=== PATIENT | female | born 1940 | race Caucasian/White ===

== ENCOUNTER 2019-05-24 21:00 | Emergency (ER) | payer MEDICARE ==
[~2019-05-24] VITALS: Ht 162.5 cm; Wt 53.6 kg
--- NOTE | 2019-05-24 21:09 | ED Head Injury ---
General Stated Complaint: FALL Source: patient Exam Limitations: no limitations History of Present Illness Date Seen by Provider: May 24, 2019 Time Seen by Provider: 21:07 Initial Comments To ER per EMS from the scene of a green party where she was at, she decided to dance and in doing so she fell out of her dance partner's arm striking the back of her head on the floor. She denies alcohol use. She does have a laceration to the back of her scalp. No loss of consciousness no nausea or vomiting, does have a headache. No anticoagulant use, she takes no medications at all for that matter. She is otherwise very healthy. She recalls all events. No neck pain no arm or shoulder pain no hip pain no leg pain no chest abdomen pelvis or back pain. Occurred: just prior to arrival Severity: moderate Location: occipital Method of Injury: unknown Associated Systoms: Headaches Allergies and Home Medications Allergies Coded Allergies: Sulfa (Sulfonamide Antibiotics) (Verified Allergy, Unknown, 05/24/19) Home Medications No Active Prescriptions or Reported Meds Patient Home Medication List Home Medication List Reviewed: Yes Review of Systems Review of Systems Constitutional: see HPI Eyes: No Symptoms Reported Ears, Nose, Mouth, Throat: no symptoms reported Respiratory: no symptoms reported Cardiovascular: no symptoms reported Genitourinary: no symptoms reported Musculoskeletal: no symptoms reported Skin: no symptoms reported Psychiatric/Neurological: See HPI Endocrine: No Symptoms Reported Past Olzoxfh-Pliiet-Pzeczf Hx Patient Social History Recent Foreign Travel: No Contact w/Someone Who Travel: No Physical Exam Vital Signs Vital Signs - First Documented 05/24/19 21:00 Temp 36.3 Pulse 92 Resp 18 B/P (MAP) 159/85 (109) Pulse Ox 95 O2 Delivery Room Air Capillary Refill : Height, Weight, BMI Height: '" Weight: lbs. oz. kg; BMI Method: General Appearance: WD/WN, no apparent distress HEENT: PERRL/EOMI, normal ENT inspection, TMs normal Neck: non-tender, full range of motion Respiratory: no respiratory distress, no accessory muscle use Gastrointestinal: normal bowel sounds, non tender Extremities: normal range of motion, non-tender Psychiatric: alert, oriented x 3 Crainal Nerves: normal hearing, normal speech, PERRL Skin: normal color, warm/dry Suellen Coma Score Best Eye Response: (4) Open Spontaneously Best Verbal Response: (5) Oriented Best Motor Response: (6) Obeys Commands [place] Total: 15 Procedures/Interventions Wound Location: Scalp Wound Length (cm): 1.5 Wound's Depth, Shape: linear, contused tissue, sub Q Wound Explored: clean Anesthesia: Lidocaine w/ Epi Staple Repair: Stapler 35W 5 sajan placed Progress/Results/Core Measures Results/Orders My Orders Orders - MONTANA MACDONALD APRN Ct Head/Cervical Spine Wo (05/24/19 21:06) Vital Signs/I&O 05/24/19 21:00 Temp 36.3 Pulse 92 Resp 18 B/P (MAP) 159/85 (109) Pulse Ox 95 O2 Delivery Room Air Departure Impression Primary Impression: Scalp laceration Qualified Codes: S01.01XA - Laceration without foreign body of scalp, initial encounter Disposition: HOME, SELF-CARE Condition: Stable Departure-Patient Inst. Decision time for Depature: 21:43 Referrals: NO,LOCAL PHYSICIAN (PCP/Family) Primary Care Physician Patient Instructions: Laceration Repair With [place] (DC) Add. Discharge Instructions: 1. Return to ER in 5,6 or 7 days whenever convenient for you to have the sajan removed. You can shower tonight letting the water gently run over this but do not scrub this. It might be a good idea to wear shower Tonight to bed so that this doesn't leak blood on her pillowcase, or use an old pillowcase don't mind throwing away. Return to ER for any concerns in the meantime Such as confusion, recurrent vomiting, intolerable headache or other concerns. Scripts No Active Prescriptions or Reported Meds MONTANA MACDONALD APRN May 24, 2019 21:09
--- NOTE | 2019-05-24 21:30 | Diagnostic Imaging Report ---
PROCEDURE: CT head and CT cervical spine without contrast. TECHNIQUE: Multiple contiguous axial images were obtained through the brain and cervical spine without the use of intravenous contrast. Sagittal and coronal reformations through the cervical spine were then performed. Auto Exposure Controls were utilized during the CT exam to meet ALARA standards for radiation dose reduction. INDICATION: Fall. Laceration to back of head. FINDINGS: CT HEAD: There is diffuse cortical atrophy. Ventricles are not dilated. There is no intracranial hemorrhage. No mass effect. No extra-axial fluid collection. Basal cisterns are clear. The mastoid air cells and paranasal sinuses are clear. No calvarial fractures. IMPRESSION: Cortical atrophy with no acute intracranial abnormalities. Cervical spine: Good alignment of the vertebral bodies. Body height is well-maintained throughout. Facets show good alignment. There is complete loss of disc space from C3 through C7 with mild sclerotic endplate changes both anteriorly and posteriorly. No significant spinal stenosis is seen. There is moderate foraminal encroachment upon the neural foramen on the right at the C5-C6 level. Moderate encroachment on the left at C4-C5. The atlantoaxial joint appears normal. IMPRESSION: Degenerative cervical disc disease with no evidence of acute fractures or subluxation. Dictated by: Dictated on workstation # [id number]
[2019-05-24 21:49] VITALS: BP 148/84
== END 2019-05-24 21:56 | disposition home or self-care (01) ==
LOC: EDUNIT# 21:01 → ER 21:02
DX: S01.01XA Laceration without foreign body of scalp, initial encounter (principal); R40.2142 Coma scale, eyes open, spontaneous, at arrival to emergency department; R40.2252 Coma scale, best verbal response, oriented, at arrival to emergency department; R40.2362 Coma scale, best motor response, obeys commands, at arrival to emergency department; Z88.2 Allergy status to sulfonamides; W01.198A Fall on same level from slipping, tripping and stumbling with subsequent striking against other object, initial encounter
CPT/HCPCS: 12001; 70450; 72125

== ENCOUNTER 2019-05-30 14:40 | Emergency (ER) | payer MEDICARE ==
[~2019-05-30] VITALS: Ht 162.5 cm; Wt 51.0 kg
[2019-05-30 15:05] VITALS: BP 166/79
--- OUTSIDE RECORDS SUMMARY | 2019-06-23 13:07 | XMS REPORT | Continuity of Care Document ---
Author Organization Unknown POS Address Unknown SP Phone Unavailable SP Allergies Active Description Code Type Severity POS Reaction Onset Reported/Identified POS to Patient Clinical Status POS Yes Sulfa (Sulfonamide Antibiotics) [id number] SP Allergy Unknown N/A 9 SP SP Medications There is no data. Problems Date Dx Coded Attending Type Code POS Diagnosed By POS 05/24/2019 MONTANA MACDONALD APRN Ot R40.2142 SP COMA SCALE, EYES OPEN, SPONTANEOUS, EMR SP 05/24/2019 MONTANA MACDONALD APRN Ot R40.2252 SP COMA SCALE, BEST VERBAL RESPONSE, ORIENT SP 05/24/2019 MONTANA MACDONALD APRN Ot R40.2362 SP COMA SCALE, BEST MOTOR RESPONSE, OBEYS C SP 05/24/2019 MONTANA MACDONALD APRN Ot S01.01XA SP LACERATION WITHOUT FOREIGN BODY OF SCALP SP 05/24/2019 MONTANA MACDONALD APRN Ot W01.198A SP FALL SAME LEV FROM SLIP/TRIP W STRIKE AG SP 05/24/2019 MONTANA MACDONALD APRN Ot Z88 .2 SP STATUS TO SULFONAMIDES STATUS SP 05/28/2019 MONTANA MACDONALD APRN Ot R40.2142 SP COMA SCALE, EYES OPEN, SPONTANEOUS, EMR SP 05/28/2019 MONTANA MACDONALD APRN Ot R40.2252 SP COMA SCALE, BEST VERBAL RESPONSE, ORIENT SP 05/28/2019 MONTANA MACDONALD APRN Ot R40.2362 SP COMA SCALE, BEST MOTOR RESPONSE, OBEYS C SP 05/28/2019 MONTANA MACDONALD APRN Ot S01.01XA SP LACERATION WITHOUT FOREIGN BODY OF SCALP SP 05/28/2019 MONTANA MACDONALD APRN Ot W01.198A SP FALL SAME LEV FROM SLIP/TRIP W STRIKE AG SP 05/28/2019 MONTANA MACDONALD APRN Ot Z88 .2 SP STATUS TO SULFONAMIDES STATUS SP 06/03/2019 HERMAN SONI MD Ot S01.81XD SP LACERATION W/O FOREIGN BODY OF OTH PART SP 06/03/2019 HERMAN SONI MD Ot X58.XXXD SP EXPOSURE TO OTHER SPECIFIED FACTORS, SUB SP 06/06/2019 HERMAN SONI MD Ot S01.81XD SP LACERATION W/O FOREIGN BODY OF OTH PART SP 06/06/2019 HERMAN SONI MD Ot X58.XXXD SP EXPOSURE TO OTHER SPECIFIED FACTORS, SUB SP Procedures There is no data. Results There is no data. Encounters ACCT No. Visit Date/Time Discharge Status POS Pt. Type Provider Facility Loc./Un it POS Complaint POS [id number] 06/03/2019 15:16:00 16:52:00 SP DIS Emergency HERMAN SONI MD [facility] ER STITCHES REMOVED SP [id number] 05/30/2019 14:42:00 15:10:00 SP DIS Emergency HERMAN SONI MD [facility] ER STITCHES REMOVE SP [id number] 05/24/2019 21:02:00 21:56:00 SP DIS Emergency MONTANA MACDONALD APRN [facility] ER FALL
== END 2019-05-30 15:10 | disposition home or self-care (01) ==
LOC: EDUNIT# 14:40 → ER 14:42
DX: S01.81XD Laceration without foreign body of other part of head, subsequent encounter (principal); X58.XXXD Exposure to other specified factors, subsequent encounter

== ENCOUNTER 2019-06-03 15:14 | Emergency (ER) | payer MEDICARE ==
--- NOTE | 2019-06-03 15:53 | NUR ---
pt presents to ED for suture removal, pt does not have any sutures or sajan present to back of head where they previously were, pt already had sutures removed but believed she had one left in the laceration d/t nurse who removed sutures stated to pt "that she did not get them all out" per pt, this RN not able to visualize any sutures or sajan at this time, dark scab is present over laceration
== END 2019-06-03 16:52 | disposition home or self-care (01) ==
LOC: EDUNIT# 15:14 → ER 15:16
DX: S01.81XD Laceration without foreign body of other part of head, subsequent encounter (principal); X58.XXXD Exposure to other specified factors, subsequent encounter